=== PATIENT | male | born 1995 | race Caucasian/White ===

== ENCOUNTER 2022-11-15 05:54 | Emergency (ER) | payer MEDICAID, SELFPAY ==
[2022-11-15 06:01] VITALS: BP 116/68; PULSE 88; RESP 16; TEMP 36.9; O2SAT 96; BMI 19.4
[2022-11-15 06:51] LABS: Influenza A PCR NEGATIVE (Negative); Influenza B PCR NEGATIVE (Negative); Resp Syncy Virus RNA Qual PCR NEGATIVE (Negative); SARS COV2 PCR INHOUSE POSITIVE (Negative)
--- NOTE | 2022-11-15 07:39 | ED.GENADULT ---
HPI - General Adult General Chief complaint: General Medical Stated complaint: flu like symptoms Time Seen by Provider: 11/15/22 07:22 Source: patient and other (girfriend) Mode of arrival: ambulatory Limitations: no limitations History of Present Illness HPI narrative: This is a 27 years old patient presented to the emergency department with a chief complaint of flu-like symptoms cough congestion for about 3 days. Denies any vomiting any abdominal pain any diarrhea Onset (ago): day(s) (3) Radiation: non-radiation Severity scale (1-10): 1 Pain Consistency: constant Relieving factors: none Exacerbating factors: none Associated symptoms: denies other symptoms Related Data Previous Rx's Medication Instructions Recorded ibuprofen 800 mg tablet 800 mg PO TID PRN fever or pain 11/15/22 #20 tabs Allergies Allergy/AdvReac Type Severity Reaction Status Date / Time shrimp AdvReac Severe Hives Verified 11/15/22 06:04 Review of Systems Constitutional: Constitutional: Reports fatigue, Reports fever(s) and Reports weakness Respiratory: Respiratory: Reports cough Neurologic: Reports weakness Endocrine: Endocrine: Reports fatigue [facility] Past Medical History [facility] Narrative: Denies past medical history Social History Social History Advance Directives: No Advance Directives Information Provided: No Physical Exam ED Vital Signs: Vital Signs - 24 hr 11/15/22 06:01 Temperature 98.4 F Pulse Rate 88 Respiratory Rate 16 Blood Pressure 116/68 Pulse Oximetry 96 Oxygen Delivery Method Room Air BMI result Body Mass Index 19.4 Const General: cooperative, comfortable, no acute distress, well developed and awake Nutritional Appearance: average body habitus Orientation/consciousness: patient oriented x3 Limitations: no limitations HENMT Head: Yes normal to inspection Ears: hearing grossly normal bilaterally General nose exam: Normal external nose present Face and sinus: Yes normal facial exam Mouth: Normal oral and palatal mucosa present Neck Neck: Yes normal visual inspection and Yes full ROM Chest Chest palpation & inspection: normal inspection of the chest Resp Effort & Inspection: normal respiratory effort Auscultation: clear to auscultation bilaterally Cardio Rate: regular rate Rhythm: regular rhythm GI Inspection: Yes normal to inspection Palpation (GI): Soft to palpation, not firm, nontender and no guarding Percussion: Yes normal to percussion Skin General skin exam: no rashes or lesions noted and elasticity normal Lesions: no lesions Rashes: no rashes Neuro General: patient oriented x3 Cranial nerves: Yes CN's II-XII intact bilaterally Cognition (Neuro): normal cognition Gait exam (Neuro): Normal gait present Medical Decision Making Medical Decision Making [facility] Narrative: Patient presented with a chief complaint of congestion cough COVID positive, however is oxygenating well normotensive afebrile he has no comorbidity he can be discharged home Differential Diagnosis Differential Diagnoses: The differential diagnosis associated with the presentation includes Influenza/COVID /pneumonia Admission/Observation Consideration of admission/observation: Escalation of care including admission/observation considered Lab Data [facility] Lab Attestation statement: I reviewed the patient's lab results. Labs: Lab Results 11/15/22 Range/Units 06:11 Influenza Type A (PCR) NEGATIVE (Negative) Influenza Type B (PCR) NEGATIVE (Negative) RSV RNA Qual (PCR) NEGATIVE (Negative) SARS-CoV-2 RNA (RT-PCR) POSITIVE A (Negative) Independent Historian Clinical information obtained from an independent historian. History obtained from or confirmed by: Other ([email or web address]) Prescription Management I considered prescription management with: Pain Medication Discharge Plan Discharge Clinical Impression: COVID-19 Patient Disposition: Home, Self-Care Instructions: COVID-19 (Coronavirus Disease 2019) (ED) Additional Instructions: Drink a lot of fluid ibuprofen as needed for pain if fever Prescriptions: New ibuprofen 800 mg tablet 800 mg PO TID PRN (Reason: fever or pain) Qty: 20 0RF Stand Alone Forms: Work/School Release Interventions: ED Discharge Assessment Last Done: 11/15/22 08:23 Discharge Date/Time: 11/15/22 08:27
== END 2022-11-15 08:27 | disposition home or self-care (01) ==
PROVIDERS: Emergency Provider Emergency Medicine
DX: U07.1 COVID-19 (principal); R05.9 Cough, unspecified
CPT/HCPCS: 0241U; 99282; 99283

== ENCOUNTER 2024-03-20 18:53 | Emergency (ER) | payer OTHER, SELFPAY ==
--- NOTE | ~2024-03-20 | US_ITS ---
CLINICAL HISTORY: swelling above umbilicus abscess vs hernia Ultrasound abdominal wall Comparison: None Findings: 1 cm subcutaneous solid nodule superior to the umbilicus. This demonstrates peripheral hypo echogenic appearance. Central hyperechoic characteristics noted. Findings likely is a lymph node. No ventral hernia is identified. Impression: 1 cm supraumbilical subcutaneous nodule, probable lymph node This document has been electronically signed by: Lyndon Tompkins MD on 03/20/2024 21:40:21
--- NOTE | 2024-03-20 19:08 | ED.GENADULT ---
HPI - General Adult General Chief complaint: Skin/Abscess/Foreign Body Stated complaint: ?Cyst Time Seen by Provider: 03/20/24 20:42 Source: patient and family Limitations: no limitations and language barrier History of Present Illness ED Provider: Tasia Queen PA-C HPI narrative: 28-year-old male presents with firm lump above his belly button x1 day. The lesion is uncomfortable, no overlying redness, no drainage from his umbilicus. No fevers. No injury to the area. Related Data Previous Rx's ?Medication ?Instructions ?Recorded ibuprofen 800 mg tablet 800 mg PO TID PRN fever or pain 11/15/22 #20 tabs Allergies Allergy/AdvReac Type Severity Reaction Status Date / Time shrimp AdvReac Severe Hives Verified 03/20/24 19:12 Review of Systems Review of Systems: Yes all other systems are reviewed and are negative Constitutional: Constitutional: Denies fatigue and Denies fever(s) Cardiovascular: Cardiovascular: Denies chest pain and Denies dyspnea Respiratory: Respiratory: Denies cough and Denies dyspnea Gastrointestinal: Gastrointestinal: Denies abdominal pain, Denies diarrhea, Denies nausea and Denies vomiting Endocrine: Endocrine: Denies fatigue [facility] Past Medical History Attestation statement: The following information was validated with the patient. Social History Social History Advance Directives: No Advance Directives Information Provided: No Physical Exam ED Vital Signs: Vital Signs - 24 hr 03/20/24 19:09 Temperature 98.5 F Pulse Rate 81 Respiratory Rate 16 Blood Pressure 115/71 Pulse Oximetry 98 Oxygen Delivery Method Room Air BMI result Body Mass Index 19.1 Const Other: Alert well appearing Orientation/consciousness: patient oriented x3 Resp Effort & Inspection: normal respiratory effort Cardio Other: Calm cooperative GI Other: Prominent focal firm swelling noted superior to the umbilicus, measures about the size of a nickel, no overlying erythema warmth or swelling, mildly tender to palpation, no break in the abdominal wall Skin Other: Warm dry no rash Neuro General: patient oriented x3, no focal motor deficits and CN's II-XI intact bilaterally Psych Other: Calm cooperative Course Course Course Narrative: This is a rapid medical exam performed by Vanessa Johnson NP: Additional HPI, ROS, PE not included below will be deferred to primary provider. Patient is a 28-year-old Maltese speaking male presenting to the emergency department with complaint of swelling above umbilicus since Tuesday, pain worse with coughing, has also had nausea/vomiting. Plan: labs, U/S Medical Decision Making Medical Decision Making [facility] Narrative: 28-year-old male presents with firm lump above his belly button x1 day. The lesion is uncomfortable, no overlying redness, no drainage from his umbilicus. No fevers. No injury to the area. No chronic issues History: Per patient's I have considered the following differential diagnoses: Cyst, infected cyst, umbilical hernia that is incarcerated or strangulated Plan: Patient's exam was benign this is likely a cyst, labs and an ultrasound were obtained from triage I have independently reviewed the following tests: Labs: No leukocytosis, not anemic, no electrolyte abnormality Limited abdominal ultrasound:Findings: 1 cm subcutaneous solid nodule superior to the umbilicus. This demonstrates peripheral hypo echogenic appearance. Central hyperechoic characteristics noted. Findings likely is a lymph node. No ventral hernia is identified. Impression: 1 cm supraumbilical subcutaneous nodule, probable lymph node This document has been electronically signed by: Lyndon Tompkins MD on 03/20/2024 21:40:21 Lab Data 03/20/24 19:26 03/20/24 19:26 Labs: Lab Results 03/20/24 Range/Units 19:26 WBC 9.3 (4.8-10.8) X10*3/uL RBC 5.14 (4.60-5.80) X10*6/uL Hgb 15.5 (14.0-18.0) g/dl Hct 43.5 (42.0-52.0) % MCV 84.6 (80.0-98.0) fL MCH 30.2 (27.0-33.0) pg MCHC 35.6 (31.0-36.0) g/dl RDW 11.9 (11.0-16.0) % Plt Count 282 (160-400) X10*3/uL MPV 9.4 (9.4-12.4) fL Immature Gran % (Auto) 0.3 (0.0-0.4) % Neut % (Auto) 78.6 H (45-73) % Lymph % (Auto) 11.4 L (20-40) % [place] % (Auto) 8.8 (2-11) % Eos % (Auto) 0.6 (0-4) % Baso % (Auto) 0.3 (0-2) % Lymph # (Auto) 1.1 L (1.2-4.9) X10*3/uL [place] # (Auto) 0.8 (0.1-1.2) X10*3/uL Eos # (Auto) 0.1 (0.0-0.4) X10*3/uL Baso # (Auto) 0.0 (0.0-0.2) X10*3/uL Abs Immat Gran (auto) 0.03 (0.00-0.03) X10*3/uL Absolute Neuts (auto) 7.3 (2.0-8.3) x10*3/uL Absolute Nucleated RBC 0.000 (0.0-0.012) X10*3/uL Nucleated RBC % (auto) 0.0 (0.0-0.2) /100WBC Sodium 142 (135-145) mmol/L Potassium 4.2 (3.3-5.1) mmol/L Chloride 107 (96-108) mmol/L Carbon Dioxide 28 (22-29) mmol/L Anion Gap 11 L (12-20) BUN 17 H (9-16) mg/dL Creatinine 0.94 (0.5-1.4) mg/dL Estim Creat Clear Calc 87.1 Estimated GFR > 60 Random Glucose 91 (60-115) mg/dL Calcium 9.0 (8.4-10.2) mg/dL Total Bilirubin 0.6 (0.0-1.0) mg/dL AST 23 (5-37) U/L ALT 13 (0-40) U/L Alkaline Phosphatase 70 (39-117) U/L Total Protein 7.6 (6.5-8.0) g/dL Albumin 4.2 (3.5-5.0) g/dL Discharge Plan Discharge Clinical Impression: Lymph node symptom Patient Disposition: Home, Self-Care Additional Instructions: The ultrasound revealed that you have an isolated prominent lymph node. All of your labs were normal. Your lymph nodes are part of your immune system, they survey your body for infection and inflammation. Sometimes they can become prominent and can be uncomfortable, this should resolve on its own. Follow up with your primary care provider as needed. You can use [id number] ibuprofen 600 mg taken every 6 hours with food for your pain. Prescriptions: No Action ibuprofen 800 mg tablet 800 mg PO TID PRN (Reason: fever or pain) Qty: 20 0RF Print Language: Maltese
[2024-03-20 19:09] VITALS: BP 115/71; PULSE 81; RESP 16; TEMP 36.9; O2SAT 98; BMI 19.1
[2024-03-20 19:31] LABS: MANUAL DIFF FLAG NO
[2024-03-20 19:33] LABS: Basophils Percent Auto 0.3 % (0-2); Eosinophils Absolute Auto 0.1 X10*3/uL (0.0-0.4); Eosinophils Percent Auto 0.6 % (0-4); Hematocrit 43.5 % (42.0-52.0); Hemoglobin 15.5 g/dl (14.0-18.0); Imm Gran Abs Auto 0.03 X10*3/uL (0.00-0.03); Imm Gran Pct Auto 0.3 % (0.0-0.4); Lymphocytes Absolute Auto 1.1 X10*3/uL (1.2-4.9); Lymphocytes Percent Auto 11.4 % (20-40); Mean Corpuscular HGB Conc 35.6 g/dl (31.0-36.0); Mean Corpuscular Hemoglobin 30.2 pg (27.0-33.0); Mean Corpuscular Volume 84.6 fL (80.0-98.0); Mean Platelet Volume 9.4 fL (9.4-12.4); Monocytes Absolute Auto 0.8 X10*3/uL (0.1-1.2); Monocytes Percent Auto 8.8 % (2-11); Neutrophils Absolute Auto 7.3 x10*3/uL (2.0-8.3); Neutrophils Percent Auto 78.6 % (45-73); Platelet Count 282 X10*3/uL (160-400); Red Blood Count 5.14 X10*6/uL (4.60-5.80); Red Cell Distribution Width 11.9 % (11.0-16.0); White Blood Count 9.3 X10*3/uL (4.8-10.8)
[2024-03-20 20:07] LABS: Alanine Aminotransferase 13 U/L (0-40); Albumin Level 4.2 g/dL (3.5-5.0); Alkaline Phosphatase 70 U/L (39-117); Anion Gap 11 (12-20); Aspartate Amino Transferase 23 U/L (5-37); Bilirubin Total 0.6 mg/dL (0.0-1.0); Blood Urea Nitrogen 17 mg/dL (9-16); Carbon Dioxide 28 mmol/L (22-29); Chloride 107 mmol/L (96-108); Creatinine Clr Calc Pharmacy 87.1; Estimated Glomerular Filt Rate > 60; Glucose Random 91 mg/dL (60-115); Potassium 4.2 mmol/L (3.3-5.1); Sodium 142 mmol/L (135-145); Total Protein 7.6 g/dL (6.5-8.0)
[2024-03-20 22:19] VITALS: BP 115/71; PULSE 81; RESP 16; TEMP 36.9; O2SAT 98
== END 2024-03-20 22:19 | disposition home or self-care (01) ==
PROVIDERS: Registered Nurse Emergency; Emergency Provider Emergency Medicine
DX: L02.211 Cutaneous abscess of abdominal wall (principal); R59.0 Localized enlarged lymph nodes; R10.2 Pelvic and perineal pain
CPT/HCPCS: 36415; 76705; 80053; 85025; 99282; 99284

== ENCOUNTER → 2024-03-20 19:10 | Outpatient (BNV) | payer OTHER, SELFPAY | PROVIDERS: Emergency Provider Emergency Medicine; Visit Provider Radiology Diagnostic Radiology | DX: R19.05 Periumbilic swelling, mass or lump (principal) | CPT/HCPCS: 76705 ==